=== PATIENT | female | born 1955 | race Caucasian/White ===

== ENCOUNTER → 2016-11-02 | Outpatient (CLI) | payer BC ==
--- NOTE | 2016-11-03 07:03 | MM ---
Reason for exam: screening (asymptomatic). Last mammogram was performed 2 years and 2 months ago. History: Patient is postmenopausal. Family history of breast cancer in mother. Physical Findings: A clinical breast exam by your physician is recommended on an annual basis and results should be correlated with mammographic findings. MG Screening Mammo w CAD Bilateral CC and MLO view(s) were taken. Prior study comparison: August 27, 2014, bilateral MG screening mammo w CAD. November 06, 2011, bilateral digital screening mammo w/CAD. The breast tissue is heterogeneously dense. This may lower the sensitivity of mammography. There is no discrete abnormality. No significant changes when compared with prior studies. ASSESSMENT: Negative, BI-RAD 1 RECOMMENDATION: Routine screening mammogram of both breasts in 1 year.
== END | disposition home or self-care (01) ==
LOC: RADMAMWWP 08:17
PROVIDERS: ATTEND Family Medicine
DX: Z12.31 Encounter for screening mammogram for malignant neoplasm of breast (principal)

== ENCOUNTER → 2018-11-20 | Outpatient (CLI) | payer OTHER ==
--- NOTE | 2018-11-21 09:20 | MM ---
Reason for exam: screening (asymptomatic). Last mammogram was performed 2 years and 1 month ago. History: Patient is postmenopausal and has history of colon cancer at age 63. Family history of breast cancer in mother and breast cancer in sister. Physical Findings: A clinical breast exam by your physician is recommended on an annual basis and results should be correlated with mammographic findings. MG Screening Mammo w CAD Bilateral CC and MLO view(s) were taken. Prior study comparison: November 02, 2016, bilateral MG screening mammo w CAD. August 27, 2014, bilateral MG screening mammo w CAD. The breast tissue is heterogeneously dense. This may lower the sensitivity of mammography. There is a questionable obscured mass in the right breast slight upper quadrant middle position 3-4cm from nipple. There are benign appearing round calcifications in the left breast. ASSESSMENT: Incomplete: need additional imaging evaluation, BI-RAD 0 RECOMMENDATION: Special view mammogram of the right breast. If lesion persists on supplemental views, image directed ultrasound is recommended. [facility] will attempt to contact patient to return for supplemental views and ultrasound if indicated.
== END | disposition home or self-care (01) ==
LOC: RADMAMWWP 13:13
PROVIDERS: ATTEND Family Medicine
DX: Z12.31 Encounter for screening mammogram for malignant neoplasm of breast (principal)
CPT/HCPCS: 77067

== ENCOUNTER → 2018-12-02 | Outpatient (CLI) | payer OTHER ==
--- NOTE | 2018-12-03 07:57 | MM ---
Reason for exam: additional evaluation requested from abnormal screening. Last mammogram was performed less than 1 month ago. History: Patient is postmenopausal and has history of colon cancer at age 63. Family history of breast cancer in mother at age 50 and breast cancer in sister at age 65. Physical Findings: Nurse did not find any significant physical abnormalities on exam. MG 3D Work Up W/Cad RT Spot compression CC, spot compression ML, and ML view(s) were taken of the right breast. Prior study comparison: November 20, 2018, bilateral MG screening mammo w CAD. November 02, 2016, bilateral MG screening mammo w CAD. The breast tissue is heterogeneously dense. This may lower the sensitivity of mammography. Subareolar right MLO nodularity is unchanged. More posterior and centrally located asymmetry on MLO disperses completely. These results were verbally communicated with the patient and result sheet given to the patient on 12/02/18. ASSESSMENT: Benign, BI-RAD 2 RECOMMENDATION: Return to routine screening mammogram schedule for both breasts.
== END | disposition home or self-care (01) ==
LOC: RADMAMWWP 14:48
PROVIDERS: ATTEND Family Medicine
DX: R92.8 Other abnormal and inconclusive findings on diagnostic imaging of breast (principal)
CPT/HCPCS: 77065; G0279; 77061

== ENCOUNTER → 2020-04-26 | Outpatient (CLI) | payer OTHER ==
--- NOTE | 2020-04-29 12:16 | MM ---
Reason for exam: screening (asymptomatic). Last mammogram was performed 1 year and 5 months ago. History: Patient is postmenopausal and has history of colon cancer at age 63. Family history of breast cancer in mother at age 50 and breast cancer in sister at age 65. Took hormonal contraceptives for 1 year. Physical Findings: A clinical breast exam by your physician is recommended on an annual basis and results should be correlated with mammographic findings. MG 3D Screening Mammo W/Cad Bilateral CC and MLO view(s) were taken. Prior study comparison: December 02, 2018, right breast MG 3d work up w/cad RT. November 20, 2018, bilateral MG screening mammo w CAD. The breast tissue is heterogeneously dense. This may lower the sensitivity of mammography. There is no discrete abnormality. No significant changes when compared with prior studies. ASSESSMENT: Negative, BI-RAD 1 RECOMMENDATION: Routine screening mammogram of both breasts in 1 year.
== END | disposition home or self-care (01) ==
LOC: RADMAMWWP 14:53
PROVIDERS: ATTEND Family Medicine
DX: Z12.31 Encounter for screening mammogram for malignant neoplasm of breast (principal); Z80.3 Family history of malignant neoplasm of breast
CPT/HCPCS: 77063; 77067

== ENCOUNTER → 2020-08-04 | Outpatient (CLI) | payer OTHER ==
[2020-08-04 14:51] LABS: Basophils # (A) 0.1 k/uL (0-0.2); Basophils % (A) 1 %; Eosinophils # (A) 0.1 k/uL (0-0.7); Eosinophils % (A) 2 %; HCT 42.9 % (34.0-46.0); HGB 14.7 gm/dL (11.4-16.0); Lymphocytes # (A) 2.7 k/uL (1.0-4.8); Lymphocytes % (A) 43 %; MCH 32.8 pg (25.0-35.0); MCHC 34.2 g/dL (31.0-37.0); MCV 95.9 fL (80.0-100.0); Mean Platelet Volume 7.6; Monocytes # (A) 0.5 k/uL (0-1.0); Monocytes % (A) 8 %; Neutrophils # (A) 2.8 k/uL (1.3-7.7); Neutrophils % (A) 44 %; Platelet Count 281 k/uL (150-450); RBC 4.47 m/uL (3.80-5.40); RDW 12.8 % (11.5-15.5); WBC 6.3 k/uL (3.8-10.6)
== END | disposition home or self-care (01) ==
LOC: LABPAT 13:12
PROVIDERS: ATTEND Obstetrics & Gynecology Obstetrics
DX: Z01.818 Encounter for other preprocedural examination (principal); N84.0 Polyp of corpus uteri; N95.0 Postmenopausal bleeding
CPT/HCPCS: 85025; 93005

== ENCOUNTER 2020-08-16 08:32 | Day surgery (SDC) | payer OTHER ==
[2020-08-12 15:42] VITALS: BMI 24.1
[~2020-08-16 08:32] MED LIST: DEXAMETHASONE SOD PHOSPHATE 4 MG/ML 1 ML VIAL IV ONE; LACTATED RINGERS 1,000 ML IV SCH; LIDOCAINE 1% (10MG/ML) FOR IV START INTRADERMA PRN; ONDANSETRON 4 MG/2 ML VIAL IVP ONE; Pre Op ABX Message 1 EACH MISC MISCELLANE ONE; SCOPOLAMINE 1.5MG/72HR PATCH TRANSDERM ONE; fentaNYL (PF) 50 MCG/ML 2 ML AMP IV PRN
[2020-08-16] MEDS ORDERED: LACTATED RINGERS 1,000 ML IV ONE ×2 (09:15→11:44)
--- NOTE | 2020-08-16 10:56 | P.HPOB ---
History of Present Illness H&P Date: 08/16/20 Chief Complaint: Postmenopausal bleeding This is a 65-year-old female with known postmenopausal bleeding. Patient had an ultrasound for uterus is noted to be small at 6 cm with 2 endometrial polyps by 7 mm some fluid was noted within endometrial canal, ovaries were not visualized most likely secondary to her postmenopausal status. Review of Systems Constitutional: Denies chills, Denies fatigue Ears, nose, mouth and throat: Denies headache Cardiovascular: Denies leg edema Respiratory: Denies dyspnea Gastrointestinal: Denies nausea, Denies vomiting Genitourinary: Denies Past Medical History Past Medical History: Cancer, GERD/Reflux Additional Past Medical History / Comment(s): Hx Colon cancer 2019. Varicose veins. Lower back pain. Vertigo. History of Any Multi-Drug Resistant Organisms: None Reported Past Surgical History: Joint Replacement, Orthopedic Surgery, Tubal Ligation Additional Past Surgical History / Comment(s): Colon surgery for cancer, right hip replacement, left thumb surgery(bone taken out), Varicose vein surgery bilateral legs. Past Anesthesia/Blood Transfusion Reactions: No Reported Reaction, Motion Sickn ess Past Psychological History: Anxiety Smoking Status: Current every day smoker Past Alcohol Use History: Heavy Additional Past Alcohol Use History / Comment(s): Has been smoking 40+ yrs, 1PPD. Drinks 3-4 beers 3-4 days per week. Past Drug Use History: None Reported - Past Family History Mother Family Medical History: Cancer Additional Family Medical History / Comment(s): Breast cancer. Sister(s) Family Medical History: Cancer Additional Family Medical History / Comment(s): Breast cancer. Medications and Allergies Home Medications Medication Instructions Recorded Confirmed Type No Known Home Medications 08/12/20 08/12/20 History Allergies Allergy/AdvReac Type Severity Reaction Status Date / Time acetaminophen [From Percocet] Allergy Hypotension Verified 08/12/20 15:38 oxycodone [From Percocet] Allergy Hypotension Verified 08/12/20 15:38 sulfamethoxazole Allergy Itching Verified 08/12/20 15:38 [From Bactrim] trimethoprim [From Bactrim] Allergy Itching Verified 08/12/20 15:38 Exam Osteopathic Statement: *. No significant issues noted on an osteopathic structural exam other than those noted in the History and Physical/Consult. Vital Signs Temp Pulse Resp BP Pulse Ox 08/16/20 09:12 97.8 F 74 18 112/73 97 Intake and Output 08/15/20 08/16/20 08/16/20 22:59 06:59 14:59 Other: Weight 65 kg Targeted physical exam is performed in this date and network lead a well-nourished well-developed non female in no acute distress, breathing is noted to be nonlabored, heart has regular rhythm, abdomen is soft and nontender. Uterus is small and mobile with no pelvic masses appreciated. Assessment and Plan (1) PMB (postmenopausal bleeding) Current Visit: Yes Status: Acute Code(s): N95.0 - POSTMENOPAUSAL BLEEDING SNOMED Code(s): 19622862 (2) Endometrial polyp Current Visit: Yes Status: Acute Code(s): N84.0 - POLYP OF CORPUS UTERI SNOMED Code(s): 62797251 Plan: 65-year-old non female that presents for hysteroscopy, dilation and curettage secondary to postmenopausal bleeding with known endometrial polyps. Surgery is reviewed and questions are answered. Patient states understanding and wishes to proceed. ACOG pamphlet was given for patient to review
[2020-08-16] MEDS ORDERED: LIDOCAINE 1% INJ 10MG/ML (20 ML MDV) ONE (11:18)
[2020-08-16] MEDS ORDERED: MIDAZOLAM 2 MG/2 ML VIAL ONE (11:18)
[2020-08-16] MEDS ORDERED: fentaNYL (PF) 50 MCG/ML 2 ML AMP ONE (11:18)
[2020-08-16] MEDS ORDERED: KETOROLAC 15 MG/ML 1 ML VIAL ONE (11:18)
[2020-08-16] MEDS ORDERED: PROPOFOL 10 MG/ML 20 ML VIAL IV ONE (11:18)
--- NOTE | 2020-08-16 11:43 | P.OP ---
Date of Procedure: 08/16/20 Preoperative Diagnosis: Postmenopausal bleeding, endometrial polyps Postoperative Diagnosis: Same Procedure(s) Performed: Hysteroscopy, dilation and curettage Surgeon: Suzanne Krueger Estimated Blood Loss (ml): 2 IV fluids (ml): 500 Urine output (ml): 200 Pathology: other (Endometrial curettings) Condition: stable Disposition: PACU Indications for Procedure: Postmenopausal bleeding with endometrial polyps visualized on ultrasound Operative Findings: Normal postmenopausal appearing endometrial cavity, small polyp appreciated Description of Procedure: Patient was seen in the preoperative area and procedure was reviewed. Patient is taken back to the operating suite where general anesthesia was obtained without difficulty by the anesthesia department. Patient was prepped and draped in normal sterile fashion in the dorsal lithotomy position. Weighted speculum was the posterior vaginal vault. A red rubber catheter was used to drain the bladder clear yellow urine. The anterior lip of the cervix is visualized and grasped with single-tooth tenaculum. Endocervical canal was then dilated. The endometrial cavity was sounded to 6 m. This discussed with the the cervix and toward the endometrial cavity, post menopausal atrophic cavity was noted, cervical mucus was noted at the fundus, otherwise normal-appearing endometrial cavity. Sharp curettage was performed until gritty texture was noted in all 4 quadrants of the endometrial cavity. The specimen was then sent to pathology for analysis. Pictures were taken and all instruments removed from the patient's vaginal vault. Hemostasis was appreciated from the single-tooth tenaculum after removal. All counts were noted be correct 2 at the end of the procedure. Patient did tolerate procedure well.
[2020-08-16 12:00] VITALS: RESP 16; TEMP 97.9
[2020-08-16 13:22] VITALS: BP 110/73; PULSE 71
== END 2020-08-16 13:35 | disposition home or self-care (01) ==
LOC: OR 08:32
PROVIDERS: ATTEND Obstetrics & Gynecology Obstetrics
DX: N87.1 Moderate cervical dysplasia (principal); N95.0 Postmenopausal bleeding; K21.9 Gastro-esophageal reflux disease without esophagitis; I83.90 Asymptomatic varicose veins of unspecified lower extremity; M54.5 Low back pain; Z85.038 Personal history of other malignant neoplasm of large intestine; F17.210 Nicotine dependence, cigarettes, uncomplicated; Z98.890 Other specified postprocedural states; F41.9 Anxiety disorder, unspecified; Z79.899 Other long term (current) drug therapy; Z80.3 Family history of malignant neoplasm of breast
CPT/HCPCS: 88305; 58558; J2250; J1100; J2405; J2001; J3010; J1885; J2704

== ENCOUNTER → 2021-02-01 | Outpatient (CLI) | payer OTHER ==
[2021-02-01 14:52] LABS: Basophils # (A) 0.1 k/uL (0-0.2); Basophils % (A) 1 %; Eosinophils # (A) 0.1 k/uL (0-0.7); Eosinophils % (A) 2 %; HCT 46.3 % (34.0-46.0); HGB 14.9 gm/dL (11.4-16.0); Lymphocytes # (A) 2.2 k/uL (1.0-4.8); Lymphocytes % (A) 35 %; MCHC 32.1 g/dL (31.0-37.0); MCV 99.7 fL (80.0-100.0); Mean Platelet Volume 7.6; Monocytes # (A) 0.4 k/uL (0-1.0); Monocytes % (A) 6 %; Neutrophils # (A) 3.3 k/uL (1.3-7.7); Neutrophils % (A) 54 %; Platelet Count 275 k/uL (150-450); RBC 4.65 m/uL (3.80-5.40); RDW 12.9 % (11.5-15.5); WBC 6.2 k/uL (3.8-10.6)
== END | disposition home or self-care (01) ==
LOC: LABPAT 13:40
PROVIDERS: ATTEND Obstetrics & Gynecology Obstetrics
DX: Z01.812 Encounter for preprocedural laboratory examination (principal); N87.1 Moderate cervical dysplasia
CPT/HCPCS: 36415; 85025

== ENCOUNTER 2021-02-08 06:58 | Day surgery (SDC) | payer OTHER ==
[2021-01-31 15:01] VITALS: BMI 24.6
[~2021-02-08 06:58] MED LIST changes: -LIDOCAINE 1% (10MG/ML) FOR IV START INTRADERMA PRN; -SCOPOLAMINE 1.5MG/72HR PATCH TRANSDERM ONE
[2021-02-08] MEDS ORDERED: MIDAZOLAM 2 MG/2 ML VIAL IVP ONE (08:10)
[2021-02-08] MEDS ORDERED: PROPOFOL 10 MG/ML 20 ML VIAL IV ONE (08:48)
[2021-02-08] MEDS ORDERED: fentaNYL (PF) 50 MCG/ML 2 ML AMP ONE (08:48)
[2021-02-08] MEDS ORDERED: LIDOCAINE 1% INJ 10MG/ML (20 ML MDV) ONE (08:48)
[2021-02-08] MEDS ORDERED: KETOROLAC 15 MG/ML 1 ML VIAL ONE (08:48)
[2021-02-08] MEDS ORDERED: MIDAZOLAM 2 MG/2 ML VIAL ONE (08:48)
[2021-02-08] MEDS ORDERED: LIDOCAINE 1%-EPI 1:100,000 20 ML VIAL SUBMUCOSAL ONE (09:06)
[2021-02-08] MEDS ORDERED: IODINE/POTASS IOD (LUGOLS) BOTTLE TOPICAL ONE (09:08)
[2021-02-08] MEDS ORDERED: FERRIC SUBSULFATE (MONSELS) JAR TOPICAL ONE (09:15)
--- NOTE | 2021-02-08 09:32 | P.OP ---
Date of Procedure: 02/08/21 Preoperative Diagnosis: BHANU-2 Postoperative Diagnosis: Same Procedure(s) Performed: Cold knife cone Anesthesia: MAC Surgeon: Suzanne Krueger Estimated Blood Loss (ml): 5 IV fluids (ml): 500 Urine output (ml): 75 Pathology: other (Cervical specimen) Condition: stable Disposition: PACU Indications for Procedure: BHANU-2 noted on endocervical sample Operative Findings: Normal appearing endocervical specimen, atrophic-appearing vaginal vault Description of Procedure: Patient was taken back to the operating suite where general anesthesia was obtained without difficulty by the anesthesia department. She was prepped and draped in the normal sterile fashion in the dorsal lithotomy position. A red rubber catheter was used to drain the bladder clear yellow urine. A weighted speculum was placed in the posterior vaginal vault the anterior lip of the cervix was visualized and grasped with a single-tooth tenaculum. 2-0 Vicryl was then used to place 2 stay sutures at 3 and 6:00 of the cervix. A spinal needle was then used to perform a cervical block, 1% lidocaine with epi was used. The face of the cervix was anesthetized with 1% lidocaine with epi with the same spinal needle. An 11 blade was then used to excise a cone shaped specimen of the endocervical canal. The specimen was then sent to pathology for analysis. The Bovie was then used to obtain hemostasis. Monsel was placed along the excision site. Hemostasis was appreciated once again. All instruments were then removed from the patient's vaginal vault. All counts were noted be correct 2. Patient tolerated procedure well was taken the recovery room awake in stable condition.
[2021-02-08 09:35] VITALS: TEMP 97.9
[2021-02-08 10:10] VITALS: PULSE 78
[2021-02-08 10:28] VITALS: BP 102/69; RESP 15
== END 2021-02-08 10:42 | disposition home or self-care (01) ==
LOC: OR 06:58
PROVIDERS: ATTEND Obstetrics & Gynecology Obstetrics
DX: N87.1 Moderate cervical dysplasia (principal)
CPT/HCPCS: 57520; J2250; J1100; J2405; J2001; J3010; J1885; J2704; 88307

== ENCOUNTER → 2021-05-13 | Outpatient (CLI) | payer OTHER ==
--- NOTE | 2021-05-13 14:23 | XR ---
EXAMINATION TYPE: XR chest 2V DATE OF EXAM: 05/13/2021 COMPARISON: CT chest 10/31/2012 HISTORY: Z01.818 TECHNIQUE: Frontal and lateral views of the chest are obtained. FINDINGS: There is no focal air space opacity, pleural effusion, or pneumothorax seen. The cardiac silhouette size is within normal limits. The osseous structures are intact. IMPRESSION: No acute cardiopulmonary process.
[2021-05-13 19:11] LABS: Basophils # (A) 0.07 X 10*3/uL (0.00-0.10); Basophils % (A) 1.1 %; Eosinophils % (A) 1.6 %; HCT 44.9 % (37.2-46.3); HGB 14.4 g/dL (12.0-15.0); Immature Grans, Automated 0.2 %; Lymphocytes # (A) 2.74 X 10*3/uL (0.90-5.00); Lymphocytes % (A) 43.8 %; MCH 31.5 pg (27.0-32.0); MCHC 32.1 g/dL (32.0-37.0); MCV 98.2 fL (80.0-97.0); Mean Platelet Volume 10.5 fL (9.5-12.2); NRBC Per 100 WBC 0 /100 WBCS (0.0-0.0); Neutrophils # (A) 2.83 X 10*3/uL (1.80-7.70); Neutrophils % (A) 45.3 %; Platelet Count 280 X 10*3/uL (140-440); RBC 4.57 X 10*6/uL (4.10-5.20); RDW 13.2 % (11.5-14.5); WBC 6.25 X 10*3/uL (4.50-10.00)
[2021-05-13 19:27] LABS: African American GFR (CKD) 78.9 (60.0-200.0); Anion Gap 13.1 mmol/L (10.00-18.00); BUN/Creat Ratio 17.22 Ratio (12.00-20.00); Blood Urea Nitrogen 15.5 mg/dL (9.0-27.0); Calcium 9.4 mg/dL (8.7-10.3); Carbon Dioxide 22.9 mmol/L (20.0-27.5); Magnesium 2.1 mg/dL (1.5-2.4); Potassium 4.3 mmol/L (3.5-5.5)
[2021-05-13 21:13] LABS: Appearance,Urine Clear (Clear); Bacteria,Urine None Seen /HPF (None Seen); Bilirubin,Urine Negative (Negative); Blood,Urine Small (Negative); Color,Urine Yellow (Yellow); Ketones,Urine Negative (Negative); Leukocyte Esterase,Urine Small (Negative); Nitrite,Urine Negative (Negative); Protein,Urine Negative (Negative); RBC,Urine 0-2 /HPF (0-2); Specific Gravity,Urine 1.018 (1.001-1.030); Urobilinogen,Urine 0.2 (0.2,1.0); WBC,Urine 0-5 /HPF (0-5)
== END | disposition home or self-care (01) ==
LOC: RADXRMAIN 13:06
PROVIDERS: ATTEND Obstetrics & Gynecology
DX: Z01.818 Encounter for other preprocedural examination (principal)
CPT/HCPCS: 71046; 80048; 81001; 83735; 85025

== ENCOUNTER → 2021-05-16 | Outpatient (CLI) | payer OTHER ==
--- NOTE | 2021-05-16 09:28 | CT ---
EXAMINATION TYPE: CT abdomen pelvis w con DATE OF EXAM: 05/16/2021 COMPARISON: No previous CT scan is available for comparison HISTORY: pre op cervical CA surgery CT DLP: 581.4 mGycm Automated exposure control for dose reduction was used. TECHNIQUE: Helical acquisition of images was performed from the lung bases through the pelvis. CONTRAST: Performed with Oral Contrast and with IV Contrast, patient injected with 100 mL of Isovue 300. FINDINGS: LUNG BASES: Bilateral basal linear pulmonary atelectasis. LIVER/GB: Scattered hepatic cysts measuring up to 2.2 cm. Few tiny hepatic hypodensities, too small t o characterize and possibly representing tiny hepatic cysts. Unremarkable gallbladder. PANCREAS: No significant abnormality is seen. SPLEEN: No significant abnormality is seen. ADRENALS: 17 mm right adrenal nodule, stable since 2012 CT chest consistent with a benign lesion, lik suleiman adenoma. Unchanged slightly thickened left adrenal KIDNEYS: Left lower pole simple renal cyst without suspicious features, otherwise unremarkable kidney s FREE AIR: No free air is visualized. RETROPERITONEAL ADENOPATHY: No pathologically enlarged REPRODUCTIVE ORGANS: Obscured by artifacts from right hip prosthesis. URINARY BLADDER: Suboptimally visualized PELVIC ADENOPATHY: No pathologically enlarged. OSSEOUS STRUCTURES: Right hip arthroplasty. No gross aggressive bone lesion. BOWEL: Unremarkable stomach, duodenum and small bowel. Scattered uncomplicated colonic diverticulosi s. Large fecaloma is seen impacted in the descending colon. Questionable previous colonic anastomosis . Normal appendix. OTHER: Scattered arterial atherosclerotic calcifications. No sizable ascites. IMPRESSION: The reproductive organs are obscured by the right hip prosthesis. Scattered hepatic cysts and left re nal cyst. Millimetric hypodensities within the liver, too small to characterize and could also repres ent hepatic cysts. No evidence of metastatic disease in the abdomen or the pelvis otherwise. Incident al findings as described above.
== END | disposition home or self-care (01) ==
LOC: RADCTMAIN 06:58
PROVIDERS: ATTEND Obstetrics & Gynecology
DX: Z01.818 Encounter for other preprocedural examination (principal); Z96.641 Presence of right artificial hip joint; K76.89 Other specified diseases of liver; N28.1 Cyst of kidney, acquired
CPT/HCPCS: 74177; Q9967

== ENCOUNTER → 2021-08-03 | Outpatient (CLI) | payer OTHER ==
--- NOTE | 2021-08-03 11:28 | MM ---
Reason for Exam: Additional evaluation requested from abnormal screening. Last screening mammogram was performed less than 1 month ago. Patient History: Menarche at age 16. First Full-Term at age 24. Left ovary removed at age 66. Right ovary removed at age 66. Hysterectomy at age 66. Postmenopausal. Colorectal cancer, age 63. Patient used Hormonal Contraceptives for 1 year. Maternal cousin had breast cancer under age 50. Sister had breast cancer, age 65. Mother had breast cancer, age 50. Risk Values: Linda 5 year model risk: 6.0%. NCI Lifetime model risk: 22.1%. Film Views: Right spot compression CC views were taken. Right spot compression MLO views were taken. Right LM views were taken. Tissue Density: Right: The breast tissue is heterogeneously dense. This may lower the sensitivity of mammography. Findings: Analyzed By CAD. There appears to be a mild focal asymmetric density in the upper right breast. Underlying suspicious spiculated or lobular mass is not evident. No persistent architectural distortion. Overall Assessment: Probably benign, BI-RAD 3 Management: Diagnostic Mammogram of the right breast in 6 months. A clinical breast exam by your physician is recommended on an annual basis and results should be correlated with mammographic findings. This exam should not preclude additional follow-up of suspicious palpable abnormalities. Results were given to the patient verbally at the time of exam. Electronically signed and approved by: Darinel Mccormick D.O. Radiologis
== END | disposition home or self-care (01) ==
LOC: RADMAMWWP 10:18
PROVIDERS: ATTEND Family Medicine
DX: R92.8 Other abnormal and inconclusive findings on diagnostic imaging of breast (principal); Z78.0 Asymptomatic menopausal state; Z80.3 Family history of malignant neoplasm of breast; Z90.721 Acquired absence of ovaries, unilateral
CPT/HCPCS: 77065; G0279; 77061

== ENCOUNTER → 2022-02-06 | Outpatient (CLI) | payer OTHER ==
--- NOTE | 2022-02-07 08:15 | MM ---
Reason for Exam: Follow-up at short interval from prior study. Last screening mammogram was performed 6 month(s) ago. Patient History: Menarche at age 16. First Full-Term at age 24. Left ovary removed at age 66. Right ovary removed at age 66. Hysterectomy at age 66. Postmenopausal. Patient used Hormonal Contraceptives for 1 year. Maternal cousin had breast cancer, age 38. Sister had breast cancer, age 65. Mother had breast cancer, age 50. Risk Values: Linda 5 year model risk: 6.0%. NCI Lifetime model risk: 22.1%. Prior Study Comparison: 04/26/2020 Bilateral Screening Mammogram, [facility]. 07/28/2021 Bilateral MG 3D screening mammo w/cad, [facility]. 08/03/2021 Right MG 3D work up w/cad RT, [facility]. Tissue Density: Right: The breast tissue is heterogeneously dense. This may lower the sensitivity of mammography. Findings: Analyzed By CAD. Benign-appearing right axillary lymph node redemonstrated. No suspicious new mass or distortion right breast. Overall Assessment: Negative, BI-RAD 1 Management: Screening Mammogram of both breasts in 6 months. Back on schedule. Results were given to the patient verbally at the time of exam. Electronically signed and approved by: Kendall Pan M.D.
== END | disposition home or self-care (01) ==
LOC: RADMAMWWP 14:49
PROVIDERS: ATTEND Family Medicine
DX: R92.8 Other abnormal and inconclusive findings on diagnostic imaging of breast (principal); Z78.0 Asymptomatic menopausal state; Z80.3 Family history of malignant neoplasm of breast; Z90.721 Acquired absence of ovaries, unilateral
CPT/HCPCS: 77065; G0279; 77061

== ENCOUNTER → 2022-07-25 | Outpatient (CLI) | payer MEDICARE, OTHER ==
--- NOTE | 2022-07-25 10:40 | MM ---
Reason for Exam: Follow-up at short interval from prior study. Last screening mammogram was performed 12 month(s) ago. Patient History: Menarche at age 16. First Full-Term at age 24. Left ovary removed at age 66. Right ovary removed at age 66. Hysterectomy at age 66. Postmenopausal. Patient used Hormonal Contraceptives for 1 year. Maternal cousin had breast cancer, age 38. Sister had breast cancer, age 65. Mother had breast cancer, age 50. Risk Values: Linda 5 year model risk: 6.1%. NCI Lifetime model risk: 21.4%. Prior Study Comparison: 11/20/2018 Bilateral Screening Mammogram, [facility]. 12/02/2018 Right Diagnostic Mammogram, [facility]. 04/26/2020 Bilateral Screening Mammogram, [facility]. 07/28/2021 Bilateral MG 3D screening mammo w/cad, [facility]. 08/03/2021 Right MG 3D work up w/cad RT, [facility]. 02/06/2022 Right MG 3D diag mammo w/cad RT, [facility]. Tissue Density: The breast tissue is heterogeneously dense. This may lower the sensitivity of mammography. Findings: Analyzed By CAD. Subareolar focal asymmetry left breast remains unchanged. Asymmetric density central inner aspect of the right breast remains unchanged as well. No significant change from prior exams. Overall Assessment: Benign, BI-RAD 2 Management: Screening Mammogram of both breasts in 1 year. Patient with increased lifetime risk. See note below regarding possible eligibility for screening with breast MRI. Patient should continue monthly self-breast exams. A clinical breast exam by your physician is recommended on an annual basis. This exam should not preclude additional follow-up of suspicious palpable abnormalities. Note on Linda scores and lifetime risk: 1. A Linda score greater than 3% is considered moderate risk. If this is the case, consider specialist referral to assess eligibility for a risk reducing agent. 2. If overall lifetime risk for the development of breast cancer is 20% or higher, the patient may qualify for future screening with alternating mammogram and breast MRI. Electronically signed and approved by: Fabiana Sky M.D. Radiologist
== END | disposition home or self-care (01) ==
LOC: RADMAMWWP 08:55
PROVIDERS: ATTEND Family Medicine
DX: R92.8 Other abnormal and inconclusive findings on diagnostic imaging of breast (principal); Z78.0 Asymptomatic menopausal state; Z80.3 Family history of malignant neoplasm of breast
CPT/HCPCS: 77062; 77066

== ENCOUNTER → 2022-09-27 | Outpatient (CLI) | payer MEDICARE, OTHER ==
[2022-09-27 11:35] LABS: African American GFR (CKD) >90 (>60 ml/min/1.73 sqM); Blood Urea Nitrogen 15 mg/dL (7-17); Non-African American GFR(CKD) 81 (>60 ml/min/1.73 sqM)
--- NOTE | 2022-09-27 22:27 | CT ---
EXAMINATION TYPE: CT abdomen pelvis w con DATE OF EXAM: 09/27/2022 COMPARISON: 05/16/2021 HISTORY: 67-year-old female C53.9, h/o colon CA, f/u TECHNIQUE: Contiguous axial scanning of the abdomen and pelvis following administration of 100 ml Iso nino 300 IV contrast. Delayed images through the kidneys and coronal/sagittal reconstructions perform ed. CT DLP: 550.2 mGycm Automated exposure control for dose reduction was used. FINDINGS: Heart normal size without pericardial effusion. Strandy scarring at the right base. No pleural effusi on. 6 mm hypodensity right hepatic dome is unchanged, likely tiny cysts. Similar small 7 mm hypodensity a nterior inferior right lower lobe also likely a cyst. 2.3 cm cyst inferior right liver lobe. Portal venous system is patent. No biliary ductal dilatation. Gallbladder, right kidney, spleen with hilar splenule, and pancreas within normal limits. There is a benign 2.4 cm cyst in the left kidney. There is a 6.1 cm wide umbilical rectus diastases. No dilated small bowel, free fluid, or free air. No mesenteric or retroperitoneal lymphadenopathy. Normal appendix. Oral contrast progressed into the proximal third transverse colon. There is moderate stool burden. Surgical material related to prior resection and re-anastomosis at the mid descending colon. There is left-sided colonic diverticulosis. No pericolonic inflammatory change. Greatest degree of diverticul osis in the sigmoid colon. Bladder is urine distended. Detailed assessment of the pelvis is limited due to streak and beam harde freddy artifact from the patient's right hip total arthroplasty. Uterus not seen, likely surgically abs ent. Neither ovary is visualized. No obvious abnormal fluid collection in the pelvis or pelvic lympha denopathy. Bones: Right hip total arthroplasty. Moderate degenerative change left hip. There is a right L5 hemis acralization with degenerative assimilation joint. Accentuated lower lumbar lordosis with facet arthr opathy and trace grade 1 retrolisthesis L4-L5. Trace grade 1 retrolisthesis T12-L1. IMPRESSION: 1. PREVIOUS SURGERY ALONG THE DESCENDING COLON. THERE IS MODERATE STOOL BURDEN AND LEFT-SIDED COLONIC DIVERTICULOSIS GREATEST ALONG THE SIGMOID COLON. NO EVIDENCE FOR ACUTE DIVERTICULITIS. 2. NO EVIDENCE FOR RECURRENT OR METASTATIC DISEASE IN THE ABDOMEN OR PELVIS. A FEW HEPATIC HYPODENSIT IES LIKELY REPRESENTING CYSTS REMAIN UNCHANGED.
== END | disposition home or self-care (01) ==
LOC: RADCTMAIN 10:51
PROVIDERS: ATTEND Family Medicine
DX: C53.9 Malignant neoplasm of cervix uteri, unspecified (principal); C18.9 Malignant neoplasm of colon, unspecified; K57.30 Diverticulosis of large intestine without perforation or abscess without bleeding; Z85.038 Personal history of other malignant neoplasm of large intestine
CPT/HCPCS: 82565; 84520; 74177; 36415; Q9967